=== PATIENT | female | born 1945 | race Caucasian/White ===

== ENCOUNTER 2017-12-17 07:42 | Day surgery (SDC) | payer MEDICARE, MEDICAID ==
[2017-12-17] VITALS (26 sets, daily range): BP systolic 91–176; BP diastolic 55–96
[~2017-12-17] VITALS: Ht 162.6 cm; Wt 39.2 kg
[~2017-12-17 07:42] MED LIST: ALBU18HF2 IH; CARCD120C PO; CELE-193 PO; CLOP75TA35 PO; CYA500T PO; DIPH-423 PO; FLUT1AER IH; HYDR2TAB7 PO; PITA2TAB2 PO; SUCR1ORA2 PO; TRAM50TA2 PO; VITA1CAP11 PO
[2017-12-17] MEDS ORDERED: normal saline 1000ml 1,000 ML IV PRN (08:05)
[2017-12-17] MEDS ORDERED: albumin (human) 25% 100 ML IV solution IV PRN (08:05)
[2017-12-17] MEDS ORDERED: HYDR-569 PO (08:35)
[2017-12-17] MEDS ORDERED: LEVO50TA8 PO (08:35)
[2017-12-17] MEDS ORDERED: MEMA5TAB PO (08:35)
[2017-12-17] MEDS ORDERED: FLO0.1T PO (08:35)
[2017-12-17] MEDS ORDERED: SERT25TA PO (08:35)
[2017-12-17] MEDS ORDERED: LIDOcaine 1% (10mg/ml) 2ml vial ONE (08:57)
[2017-12-17 09:23] LABS: BASOPHILS % (AUTO) 0.2 % (0-1); EOSINOPHILS # (AUTO) 0.2 X10'3 (0-0.9); EOSINOPHILS % (AUTO) 1.8 % (0-6); HEMATOCRIT 39.6 % (35.0-45.0); HEMOGLOBIN 13.5 g/dl (12.0-16.0); LYMPHOCYTES # (AUTO) 1.3 X10'3 (1.1-4.8); LYMPHOCYTES % (AUTO) 14.9 % (21-51); MEAN CORPUSCULAR HEMOGLOBIN 32.9 PG (27.0-31.0); MEAN CORPUSCULAR HGB CONC 34.2 % (33.0-36.5); MEAN CORPUSCULAR VOLUME 96.3 FL (78-98); MEAN PLATELET VOLUME 7.6 FL (7.4-10.4); MONOCYTES # (AUTO) 0.5 X10'3 (0-0.9); MONOCYTES % (AUTO) 5.7 % (2-12); NEUTROPHILS # (AUTO) 6.8 X10'3 (1.8-7.7); NEUTROPHILS % (AUTO) 77.4 % (42-75); PLATELET COUNT 264 X10'3 (140-440); RED BLOOD COUNT 4.11 X10'6 (4.20-5.60); RED CELL DISTRIBUTION WIDTH 13.8 % (11.5-14.5); WHITE BLOOD COUNT 8.8 X10'3 (4.5-11.0)
[2017-12-17] MEDS ORDERED: fentaNYL/PF 50MCG/1 ML 2ML syringe IV PRN (09:55)
[2017-12-17] MEDS ORDERED: LIDOcaine 1%/PF (10mg/ml) 5ml vial SQ ONE (09:55)
[2017-12-17] MEDS ORDERED: fentaNYL/PF 50MCG/1 ML 2ML syringe ONE ×2 (09:58→10:30)
== END 2017-12-17 16:40 | disposition home or self-care (01) ==
LOC: SSTAY O 07:42
PROVIDERS: ATTEND Radiology Vascular & Interventional Radiology
DX: J98.8 Other specified respiratory disorders (principal); J43.9 Emphysema, unspecified; E03.9 Hypothyroidism, unspecified; E78.5 Hyperlipidemia, unspecified; M19.90 Unspecified osteoarthritis, unspecified site; F17.210 Nicotine dependence, cigarettes, uncomplicated; Z90.89 Acquired absence of other organs; Z90.49 Acquired absence of other specified parts of digestive tract; Z88.0 Allergy status to penicillin; Z88.2 Allergy status to sulfonamides; Z88.6 Allergy status to analgesic agent; Z88.1 Allergy status to other antibiotic agents; Z93.2 Ileostomy status; Z91.012 Allergy to eggs; Z86.73 Personal history of transient ischemic attack (TIA), and cerebral infarction without residual deficits; Z98.890 Other specified postprocedural states; Z96.642 Presence of left artificial hip joint; Z98.51 Tubal ligation status; Z79.899 Other long term (current) drug therapy
CPT/HCPCS: 32405; 36415; 71045; 77012; 85025; A6222; A6257; C1729; C1769; J3010; J3490; J7030; 88173; 88305

== ENCOUNTER → 2017-12-18 | Outpatient (CLI) | payer MEDICARE, MEDICAID ==
[~2017-12-18] MED LIST changes: -CARCD120C PO; -CLOP75TA35 PO; -CYA500T PO; -DIPH-423 PO; +FLO0.1T PO; +HYDR-569 PO; -HYDR2TAB7 PO; +LEVO50TA8 PO; +MEMA5TAB PO; -PITA2TAB2 PO; +SERT25TA PO; -SUCR1ORA2 PO; -TRAM50TA2 PO; -VITA1CAP11 PO
== END ==
LOC: RAD 10:44
PROVIDERS: ATTEND Nurse Practitioner Family
DX: R07.9 Chest pain, unspecified (principal)
CPT/HCPCS: 71046

== ENCOUNTER 2018-06-20 10:31 | Emergency (ER) | payer MEDICARE, MEDICAID ==
[~2018-06-20] VITALS: Ht 162.6 cm; Wt 36.4 kg
[2018-06-20] MEDS ORDERED: morphine 4 MG/ML inj SYRINge IM ONE (11:50)
[2018-06-20 12:46] VITALS: BP 133/63
== END 2018-06-20 12:49 | disposition home or self-care (01) ==
LOC: ER 10:31
DX: S76.012A Strain of muscle, fascia and tendon of left hip, initial encounter (principal); F03.90 Unspecified dementia, unspecified severity, without behavioral disturbance, psychotic disturbance, mood disturbance, and anxiety; E78.00 Pure hypercholesterolemia, unspecified; J44.9 Chronic obstructive pulmonary disease, unspecified; K21.9 Gastro-esophageal reflux disease without esophagitis; Z88.0 Allergy status to penicillin; Z88.2 Allergy status to sulfonamides; Z79.899 Other long term (current) drug therapy; Z88.5 Allergy status to narcotic agent; Z90.49 Acquired absence of other specified parts of digestive tract; Z98.890 Other specified postprocedural states; Z86.73 Personal history of transient ischemic attack (TIA), and cerebral infarction without residual deficits; W55.09XA Other contact with cat, initial encounter; Y93.89 Activity, other specified; Y92.89 Other specified places as the place of occurrence of the external cause; Y99.8 Other external cause status
CPT/HCPCS: 73502; 96372; 99284; J2270

== ENCOUNTER 2019-07-14 19:55 | Emergency (ER) | payer MEDICARE, MEDICAID ==
[~2019-07-14] VITALS: Ht 162.6 cm; Wt 35.5 kg
[~2019-07-14 19:55] MED LIST changes: +HYDR-4383 PO; -HYDR-569 PO
--- NOTE | 2019-07-14 20:06 | NUR ---
PT. HAS DEMENTIA. HER FAMILY BRINGS HER 6 NORCO AT A TIME BECAUSE SHE HAS TAKEN AN OVERDOSE BEFORE, NOT TO KILL HERSELF BUT BECAUSE OF HER DISEASE PROSCESS. FAMILY CARRIES NARCAN BECAUSE OF THE OVERDOSE HX. THEY DID ADMINISTER NARCAN TONIGHT
--- NOTE | 2019-07-14 20:46 | NUR ---
PT keeps moving NC out of her nose, stating it hurts her nose. Pt given O2 mask but refuses to use it saying she feels like she cant breath. Pt educated on the importance of keeping her NC in place on her face to maintain her oxygen. W/O O2 pt saturation in the 80's. ON 5L NC pt O2 91%
--- NOTE | 2019-07-14 22:15 | NUR ---
PT FAMILY STATES PT CAN RIDE HOME IN A TAXI. FAMILY STATES THE WILL BE AT HOME WAITING FOR HER. Renee: [phone]. Yadira: [phone]
--- NOTE | 2019-07-14 22:27 | NUR ---
POISON CONTROL CONTACTED. INSTRUCTIONS INCLUDE GIVING MUCOMYST IF TYLENOL LEVEL IS >10. EXPECT AST AND ALT LEVELS TO BECOME ELEVATED. OBSERVE PT FOR RESPIRATORY DEPRESSION FOR 4-6 HRS AFTER ADMINISTRATIONS OF NARCAN.
[2019-07-14] MEDS ORDERED: famotidine 20mg tablet PO ONE (22:35)
[2019-07-14 22:40] LABS: BASOPHILS % (AUTO) 0.2 % (0-1); EOSINOPHILS % (AUTO) 0 % (0-6); HEMATOCRIT 40.8 % (35.0-45.0); HEMOGLOBIN 13.3 g/dl (12.0-16.0); LYMPHOCYTES # (AUTO) 0.3 X10'3 (1.1-4.8); LYMPHOCYTES % (AUTO) 2.2 % (21-51); MEAN CORPUSCULAR HEMOGLOBIN 32.6 PG (27.0-31.0); MEAN CORPUSCULAR HGB CONC 32.5 g/dL (33.0-36.5); MEAN CORPUSCULAR VOLUME 100.3 FL (78-98); MEAN PLATELET VOLUME 8.3 FL (7.4-10.4); MONOCYTES # (AUTO) 0.8 X10'3 (0-0.9); MONOCYTES % (AUTO) 6.2 % (2-12); NEUTROPHILS # (AUTO) 11.8 X10'3 (1.8-7.7); NEUTROPHILS % (AUTO) 91.4 % (42-75); PLATELET COUNT 235 X10'3 (140-440); RED BLOOD COUNT 4.07 X10'6 (4.20-5.60); RED CELL DISTRIBUTION WIDTH 13.5 % (11.5-14.5); WHITE BLOOD COUNT 12.9 X10'3 (4.5-11.0)
[2019-07-14 22:41] LABS: COLOR,URINE YELLOW (Yellow); GLUCOSE, URINE NEGATIVE (Neg); KETONES,URINE NEGATIVE (Neg); LEUKOCYTE ESTERASE ,URINE NEGATIVE (Neg); NITRITES, URINE NEGATIVE (Neg); OCCULT BLOOD,URINE LARGE (Neg); PH,URINE 5.5 (4.8-8.0); PROTEIN,URINE 100 mg/dl (Neg); UROBILINOGEN,URINE 0.2 E.U/dL (0.2-1.0)
[2019-07-14 22:53] LABS: ALANINE AMINOTRANSFERASE 30 U/L (12-78); ALBUMIN 3.5 G/DL (3.4-5.0); ALKALINE PHOSPHATASE 104 IU/L (46-116); ANION GAP 6 (8-16); ASPARTATE AMINO TRANSFERASE 21 U/L (10-37); BILIRUBIN,TOTAL 0.9 MG/DL (0.1-1.0); BLOOD UREA NITROGEN 23 MG/DL (7-18); CALCIUM 9.4 MG/DL (8.5-10.1); CHLORIDE 105 MMOL/L (99-107); GLUCOSE 145 MG/DL (70-104); POTASSIUM 4.3 MMOL/L (3.5-5.1); SODIUM 142 MMOL/L (135-145); TOTAL CARBON DIOXIDE 30.6 MMOL/L (24-32); TOTAL PROTEIN 7.1 G/DL (6.4-8.2); eGFR 54 ML/MIN
[2019-07-14 22:57] LABS: CLARITY,URINE SLIGHTLY CLOUDY (Clear); UA COLLECTION TYPE CLN CATCH MIDSTREAM
[2019-07-14 22:59] LABS: COARSE GRANULAR CAST 0-3 /LPF (NEGATIVE)
[2019-07-14 23:00] LABS: SQUAMOUS EPITHELIAL CELL,UR FEW /LPF (FEW); TRANSITIONAL EPI CELLS,URINE FEW /HPF; WBC,URINE 0-4 /HPF (0-4)
[2019-07-14 23:02] LABS: ACETAMINOPHEN 3.8 UG/ML (10-30); ETHANOL < 0.010 GM/DL (0.0-0.010)
[2019-07-14 23:02] LABS: AMORPHOUS URATES 1+; BACTERIA,URINE FEW /HPF (Neg); URINE AMPHETAMINE SCREEN NEGATIVE (Neg); URINE BARBITUATE SCREEN NEGATIVE (Neg); URINE BENZODIAZEPINES SCREEN NEGATIVE (Neg); URINE CANNABINOID SCREEN NEGATIVE (Neg); URINE COCAINE SCREEN NEGATIVE (Neg); URINE METHADONE SCREEN NEGATIVE (Neg); URINE OPIATE SCREEN POSITIVE (Neg); URINE PHENCYCLIDINE SCREEN NEGATIVE (Neg)
--- NOTE | 2019-07-14 23:10 | NUR ---
PT FAMILY CALLED STATING SOMEBODY WILL COME TO PICK HER UP AT TIME OF DISCHARGE AND BRING HER HOME OXYGEN FOR TRANSPORT.
[2019-07-14] MEDS ORDERED: azithromycin/NS 500mg/250ml 250 ML IV ONE (23:15)
[2019-07-14] MEDS ORDERED: CefTRIAXone/D5W-Rocephin 1gm 50 ML IV ONE (23:15)
--- NOTE | 2019-07-14 23:40 | NUR ---
ASKED DR CONROY IF HE WANTED BLOOD CULTURES PRIOR TO ABX, HE SAID YES, HE IS GOING TO ORDER THEM.
[2019-07-15] MEDS ORDERED: LEVO500T2 PO (00:52)
[2019-07-15] MEDS ORDERED: levoFLOXACIN 750MG TABLET PO ONE (00:55)
--- NOTE | 2019-07-15 00:57 | NUR ---
FAMILY UPDATED ON DC AFTER IV ABX. TO F/U WITH PCP AND TO MONITOR HER CLOSELY.
[2019-07-15 01:24] VITALS: BP 129/81
--- NOTE | 2019-07-15 01:37 | NUR ---
MD DECLINED TO ORDER 4 HOUR FOLLOW UP LEVELS OF ACETOMINOPHEN, AST, AND ALT, SINCE LEVELS WERE WELL WITHIN NORMAL RANGE WHEN INITIALLY DRAWN.
== END 2019-07-15 01:31 | disposition home or self-care (01) ==
LOC: ER 19:56
DX: T40.2X1A Poisoning by other opioids, accidental (unintentional), initial encounter (principal); J06.9 Acute upper respiratory infection, unspecified; F03.90 Unspecified dementia, unspecified severity, without behavioral disturbance, psychotic disturbance, mood disturbance, and anxiety; R53.83 Other fatigue; E78.00 Pure hypercholesterolemia, unspecified; J44.9 Chronic obstructive pulmonary disease, unspecified; K21.9 Gastro-esophageal reflux disease without esophagitis; Z87.11 Personal history of peptic ulcer disease; Z90.49 Acquired absence of other specified parts of digestive tract; Z98.890 Other specified postprocedural states; Z88.0 Allergy status to penicillin; Z88.1 Allergy status to other antibiotic agents; Z88.2 Allergy status to sulfonamides; Z88.5 Allergy status to narcotic agent; Z86.73 Personal history of transient ischemic attack (TIA), and cerebral infarction without residual deficits; Z88.6 Allergy status to analgesic agent; Z79.2 Long term (current) use of antibiotics; Z79.899 Other long term (current) drug therapy; Y92.89 Other specified places as the place of occurrence of the external cause
CPT/HCPCS: 36415; 71045; 71250; 80053; 80305; 80320; 80329; 81001; 83605; 83880; 84145; 84443; 85025; 87040; 93005; 96365; 96375; 99284; J0456; J0696

== ENCOUNTER 2020-09-05 13:59 | Emergency (ER) | payer MEDICARE, MEDICAID ==
[~2020-09-05] VITALS: Ht 162.6 cm; Wt 32.7 kg
[2020-09-05] MEDS ORDERED: ondansetron/PF 4mg/2ml inj IV ONE (14:20)
[2020-09-05] MEDS ORDERED: normal saline 1000ML IV soln IVB ONE (14:20)
[2020-09-05] MEDS ORDERED: bacitracin 15gm ointment TP ONE (14:35)
[2020-09-05] MEDS ORDERED: LIDOcaine 1% W/epiNEPHrine 1:200,000 10ml vial IJ ONE (14:35)
[2020-09-05 14:41] VITALS: BP 122/75
[2020-09-05 15:01] LABS: EOSINOPHILS % (AUTO) 0.4 % (0-6)
[2020-09-05 15:04] LABS: BASOPHILS % (AUTO) 0.1 % (0-1); HEMATOCRIT 43.9 % (35.0-45.0); HEMOGLOBIN 14.3 g/dl (12.0-16.0); LYMPHOCYTES # (AUTO) 0.3 X10'3 (1.1-4.8); LYMPHOCYTES % (AUTO) 2.6 % (21-51); MEAN CORPUSCULAR HGB CONC 32.6 g/dL (33.0-36.5); MEAN PLATELET VOLUME 9.5 FL (7.4-10.4); MONOCYTES # (AUTO) 0.5 X10'3 (0-0.9); MONOCYTES % (AUTO) 4.1 % (2-12); NEUTROPHILS # (AUTO) 11.8 X10'3 (1.8-7.7); NEUTROPHILS % (AUTO) 92.8 % (42-75); PLATELET COUNT 148 X10'3 (140-440); RED BLOOD COUNT 4.35 X10'6 (4.20-5.60); RED CELL DISTRIBUTION WIDTH 13.1 % (11.5-14.5); WHITE BLOOD COUNT 12.7 X10'3 (4.5-11.0)
[2020-09-05 15:16] LABS: ALANINE AMINOTRANSFERASE 11 U/L (12-78); ALBUMIN 4.1 G/DL (3.4-5.0); ALBUMIN/GLOBULIN RATIO 1.4 (1.1-1.5); ALKALINE PHOSPHATASE 66 IU/L (46-116); ANION GAP 9 (8-16); ASPARTATE AMINO TRANSFERASE 16 U/L (10-37); BILIRUBIN,TOTAL 0.9 MG/DL (0.1-1.0); BLOOD UREA NITROGEN 24 MG/DL (7-18); BUN/CREATININE RATIO 27.6 (6.6-38.0); CALCIUM 9.5 MG/DL (8.5-10.1); CHLORIDE 101 MMOL/L (99-107); CREATININE 0.87 MG/DL (0.40-0.90); GLUCOSE 130 MG/DL (70-104); POTASSIUM 3.6 MMOL/L (3.5-5.1); SODIUM 139 MMOL/L (135-145); TOTAL CARBON DIOXIDE 28.7 MMOL/L (24-32); eGFR 64 ML/MIN
[2020-09-05] MEDS ORDERED: LIDOcaine 1% w/epiNEPHrine 1:200,000 30ml vial IJ ONE (15:40)
== END 2020-09-05 17:35 | disposition home or self-care (01) ==
LOC: ER 14:00
DX: S01.81XA Laceration without foreign body of other part of head, initial encounter (principal); R51.9 Headache, unspecified; E78.00 Pure hypercholesterolemia, unspecified; J44.9 Chronic obstructive pulmonary disease, unspecified; K21.9 Gastro-esophageal reflux disease without esophagitis; Z86.73 Personal history of transient ischemic attack (TIA), and cerebral infarction without residual deficits; Z87.11 Personal history of peptic ulcer disease; Z90.89 Acquired absence of other organs; Z90.710 Acquired absence of both cervix and uterus; Z98.890 Other specified postprocedural states; Z88.0 Allergy status to penicillin; Z88.1 Allergy status to other antibiotic agents; Z88.2 Allergy status to sulfonamides; Z88.5 Allergy status to narcotic agent; Z88.6 Allergy status to analgesic agent; Z88.8 Allergy status to other drugs, medicaments and biological substances; Z79.899 Other long term (current) drug therapy; W18.39XA Other fall on same level, initial encounter; Y93.89 Activity, other specified; Y92.89 Other specified places as the place of occurrence of the external cause; Y99.8 Other external cause status
CPT/HCPCS: 12052; 36415; 70450; 70486; 80053; 85025; 96361; 96374; 99285; J2405; J7030; 12013